=== PATIENT | male | born 1980 | race Caucasian/White ===

== ENCOUNTER 2019-06-03 04:00 | Emergency (ER) | payer SELFPAY ==
[2019-06-03] MEDS ORDERED: DEXAMETHASONE SOD PHOS INJ 10 MG/1 ML VIAL IM ONE (05:53)
[2019-06-03] MEDS ORDERED: KETOROLAC TROMETHAMINE 60 MG/2 ML SDV IM ONE (05:54)
--- NOTE | 2019-06-03 05:57 | ER Document Report ---
HPI - HPI Time Seen by Provider: 06/03/19 04:31 Pain Level: 3 Notes: This is an otherwise healthy 39-year-old male presenting to emergency department chief complaint of sore throat and swollen glands. Patient reports symptoms started approximately 3 days ago. He denies any fevers. He is speaking in full complete sentences and able to swallow his own secretions without difficulty. He does report history of tonsillitis in the past, denies history of any tonsillar abscess in the past. Patient reports he had some leftover amoxicillin so he started taking this yesterday, he states he has had a total of 2-3 doses. - CONSTITUTIONAL Constitutional: DENIES: Fever, Chills - EENT EENT: REPORTS: Sore Throat - RESPIRATORY Respiratory: DENIES: Trouble Breathing Past Medical History - General Information source: Patient - Social History Smoking Status: Never Smoker Frequency of alcohol use: Social Drug Abuse: Marijuana Family History: Reviewed & Not Pertinent Patient has suicidal ideation: No Patient has homicidal ideation: No - Medical History Medical History: Negative Renal/ Medical History: Denies: Hx Peritoneal Dialysis Surgical Hx: Negative - Immunizations Immunizations up to date: Yes Vertical Provider Document - CONSTITUTIONAL Notes: PHYSICAL EXAMINATION: GENERAL: Well-appearing, well-nourished and in no acute distress. HEAD: Atraumatic, normocephalic. EYES: Pupils equal round extraocular movements intact, conjunctiva are normal. ENT: Nares patent, oropharynx clear, nonerythematous and no exudates are noted, no tonsillar swelling noted, uvula is midline, no evidence of peritonsillar abscess. NECK: Normal range of motion, palpable cervical lymphadenopathy. LUNGS: No respiratory distress, lung sounds clear and equal bilaterally. Musculoskeletal: Normal range of motion NEUROLOGICAL: Normal speech, normal gait. PSYCH: Normal mood, normal affect. SKIN: Warm, Dry, normal turgor, no rashes or lesions noted. Course - Re-evaluation Re-evalutation: Rapid strep is negative, throat culture pending. Patient was given IM Decadron for his sensation of severe throat sore throat. He was also given a dose of IM Toradol as he was complaining of throat pain. Patient updated on plan of care, patient understands throat culture is pending and I will not re-prescribe antibiotics unless we have a positive strep. Patient given ED return precautions which she verbalizes understanding and agreement with. - Vital Signs Vital signs: Temp Pulse Resp BP Pulse Ox 98.3 F 91 17 153/98 H 99 06/03/19 04:12 06/03/19 04:12 06/03/19 04:12 06/03/19 04:12 06/03/19 04:12 Discharge - Discharge Clinical Impression: Sore throat Condition: Stable Disposition: HOME, SELF-CARE Additional Instructions: SORE THROAT: Sore throats may be caused by viruses, bacteria, or fungi. Most are due to a virus, and must get better on their own. Bacterial sore throats, particularly those due to "strep," need treatment with antibiotics. If an antibiotic is prescribed, be sure to take the medication for a full 10 days. Failure to take the antibiotic can result in complications such as rheumatic fever. Sometimes, an injection of antibiotics is given instead of pills or liquid. This single "shot" is equal in effectiveness to the oral medication. To relieve symptoms, take acetaminophen for pain. Sip clear liquids frequently, or eat popsicles or ice chips. Anesthetic sprays or lozenges may help. Make sure the air in the room is not too dry. Avoid using decongestants or antihistamines. Call the doctor if there is no improvement in two days, or if you have difficulty breathing, increasing throat pain, high fever, rash, or frequent vomiting. STEROID MEDICATION: You have been given a medicine of the cortisone/steroid class. This medication is used to control inflammation or allergy. It is usually only given for a short period of time, until the acute process subsides. There are usually no side effects from short-term use of cortisone-like medications. Some persons feel an increased sense of well-being and are not sleepy at bedtime. Long-term use of cortisone medications is best avoided, unless required for a severe condition. If your condition does not remit, or relapses after the course of corticosteroid medication, you should consult your physician. FOLLOW-UP CARE: If you have been referred to a physician for follow-up care, call the physicians office for an appointment as you were instructed or within the next two days. If you experience worsening or a significant change in your symptoms, notify the physician immediately or return to the Emergency Department at any [facility] for re-evaluation. The rapid strep test today was negative. You are given a dose of steroids and Toradol here in the emergency department today. Please return to the emergency department if you experience worsening symptoms, difficulty breathing or are unable to swallow. A throat culture is pending and we will call you if there is any abnormality.
[2019-06-03 06:27] VITALS: BP 151/86
== END 2019-06-03 06:27 | disposition home or self-care (01) ==
LOC: ER 04:00
DX: J02.9 Acute pharyngitis, unspecified (principal)
CPT/HCPCS: 99283; 96372; 87070; 87880; J1885; J1100